=== PATIENT | female | born 1985 | race Two or more races ===

== ENCOUNTER 2020-11-02 15:40 | Emergency (ER) | payer SELFPAY ==
[~2020-11-02] VITALS: Ht 121.9 cm; Wt 71.0 kg
[2020-11-02] MEDS ORDERED: HYDROCODONE/ACETAMINOPHEN 5/325MG TABLET PO ONE (17:00)
[2020-11-02 17:40] LABS: BASOPHILS % 0.3 % (0.0-2.0); EOSINOPHILS % 1.5 % (0.0-5.0); HEMATOCRIT. 36.2 % (36.0-48.0); HEMOGLOBIN. 12.7 g/dL (12.0-16.0); LYMPHOCYTES % 25.7 % (20.0-50.0); MEAN CORPUSCULAR VOLUME 91.4 fL (81.0-99.0); MEAN PLATELET VOLUME 8.1 fl (7.4-10.4); NEUTROPHILS % 65.5 % (40.0-76.0); PLATELET 255 x1000/uL (130-400); RED BLOOD CELL COUNT 3.95 mill/uL (4.2-5.4); RED CELL DISTRIBUTION WIDTH 14.1 % (11.6-14.6)
[2020-11-02 17:44] LABS: CHLORIDE 109 mEq/L (98-107)
[2020-11-02 19:33] LABS: CLARITY URINE CLEAR (CLEAR); COLOR URINE YELLOW (YELLOW); KETONES URINE NEGATIVE (NEGATIVE); LEUKOCYTE ESTERASE URINE NEGATIVE (NEGATIVE); NITRITE URINE NEGATIVE (NEGATIVE); OCCULT BLOOD URINE NEGATIVE (NEGATIVE); PROTEIN URINE NEGATIVE (NEGATIVE); UROBILINOGEN URINE 0.2 E.U./dL (0.2-1.0)
[2020-11-02 21:48] VITALS: BP 102/51
== END 2020-11-02 21:48 | disposition home or self-care (01) ==
LOC: ER 15:40
DX: U07.1 COVID-19 (principal); R51.9 Headache, unspecified; R07.9 Chest pain, unspecified; R10.9 Unspecified abdominal pain; M79.10 Myalgia, unspecified site; V49.60XA Unspecified car occupant injured in collision with unspecified motor vehicles in traffic accident, initial encounter; Y93.9 Activity, unspecified; Y92.410 Unspecified street and highway as the place of occurrence of the external cause; Z90.49 Acquired absence of other specified parts of digestive tract
CPT/HCPCS: 36415; 70450; 71045; 71260; 74177; 80053; 81003; 81025; 83880; 84484; 85025; 93005; 99285; C9803; U0003; U0005